=== PATIENT | female | born 1955 | race Two or more races ===

== ENCOUNTER → 2022-02-11 08:49 | Outpatient (BNVA) | payer OTHER, SELFPAY | PROVIDERS: PCP Internal Medicine; Visit Provider Dietitian, Registered | DX: E66.9 Obesity, unspecified (principal); Z68.36 Body mass index [BMI] 36.0-36.9, adult; R73.03 Prediabetes; Z71.3 Dietary counseling and surveillance | CPT/HCPCS: 97802 ==

== ENCOUNTER → 2023-03-30 09:49 | Outpatient (BNVA) | payer OTHER, SELFPAY | PROVIDERS: PCP Nurse Practitioner Family; Visit Provider Physician Assistant ==

== ENCOUNTER → 2023-04-18 13:38 | Outpatient (BNVA) | payer OTHER, SELFPAY | PROVIDERS: PCP Nurse Practitioner Family; Visit Provider Physician Assistant | DX: E66.01 Morbid (severe) obesity due to excess calories (principal); Z68.41 Body mass index [BMI] 40.0-44.9, adult; R73.03 Prediabetes; Z87.19 Personal history of other diseases of the digestive system; Z86.69 Personal history of other diseases of the nervous system and sense organs; Z98.84 Bariatric surgery status | CPT/HCPCS: 99202 ==

== ENCOUNTER → 2023-05-03 10:23 | Outpatient (REF) | payer OTHER, SELFPAY | LOC: HO.SL 10:23 | PROVIDERS: PCP Nurse Practitioner Family; Visit Provider Physician Assistant | DX: E66.01 Morbid (severe) obesity due to excess calories (principal); G47.33 Obstructive sleep apnea (adult) (pediatric); K21.9 Gastro-esophageal reflux disease without esophagitis; Z90.3 Acquired absence of stomach [part of]; Z86.69 Personal history of other diseases of the nervous system and sense organs | CPT/HCPCS: 95806 ==

== ENCOUNTER → 2023-05-04 13:31 | Outpatient (BNVA) | payer OTHER, SELFPAY | PROVIDERS: PCP Nurse Practitioner Family; Visit Provider Counselor Mental Health ==

== ENCOUNTER → 2023-05-11 10:47 | Outpatient (BNVA) | payer OTHER, SELFPAY | PROVIDERS: Visit Provider Dietitian, Registered | DX: E66.01 Morbid (severe) obesity due to excess calories (principal); R73.03 Prediabetes; Z68.41 Body mass index [BMI] 40.0-44.9, adult; Z90.49 Acquired absence of other specified parts of digestive tract; Z90.3 Acquired absence of stomach [part of]; Z71.3 Dietary counseling and surveillance | CPT/HCPCS: 97802 ==

== ENCOUNTER → 2023-05-19 13:51 | Outpatient (BNVA) | payer OTHER, SELFPAY | PROVIDERS: Visit Provider Physician Assistant | DX: E66.01 Morbid (severe) obesity due to excess calories (principal); F50.81 Binge eating disorder; Z90.3 Acquired absence of stomach [part of]; Z68.41 Body mass index [BMI] 40.0-44.9, adult | CPT/HCPCS: 99212 ==

== ENCOUNTER 2023-06-01 09:59 | Outpatient (REF) | payer OTHER, SELFPAY ==
--- NOTE | ~2023-06-01 | XR_ITS ---
EXAMINATION: XR CHEST CLINICAL INFORMATION: Morbid obesity COMPARISON: None available. TECHNIQUE: 2 views of the chest were obtained. FINDINGS: No significant abnormality is noted involving the heart, lungs, mediastinum, bony thorax or soft tissues. XR/XR chest 2V IMPRESSION: No acute disease.
[2023-06-01 11:44] LABS: Alanine Aminotransferase 19 U/L (0-31); Albumin Level 3.7 g/dL (3.5-5.0); Alkaline Phosphatase 73 U/L (39-117); Anion Gap 11 (12-20); Aspartate Amino Transferase 20 U/L (5-31); Bilirubin Total 0.9 mg/dL (0.0-1.0); Blood Urea Nitrogen 14 mg/dL (9-16); C Reactive Protein 0.17 mg/dL (< or = 0.50); Calcium 9.9 mg/dL (8.4-10.2); Carbon Dioxide 28 mmol/L (22-29); Chloride 105 mmol/L (96-108); Cholesterol 181 mg/dL; Estimated Glomerular Filt Rate > 60; Glucose Random 88 mg/dL (60-115); HDL Cholesterol 61 mg/dL; Iron 115 mcg/dL (30-160); LDL Cholesterol Calculated 102 mg/dl; Magnesium 1.9 mg/dL (1.6-2.6); Percent Iron Saturation 38 % (15-50); Potassium 4.1 mmol/L (3.3-5.1); Sodium 140 mmol/L (135-145); Total Iron Binding Capacity 301 mcg/dL (228-428); Total Protein 6.7 g/dL (6.5-8.0); Triglycerides 91 mg/dL; Unsaturated Iron Binding 186 ug/dL
[2023-06-01 11:51] LABS: Ferritin 82 ng/mL (10-250); TSH reflex Free T4 0.94 uIU/mL (0.32-4.0); Vitamin D 25-OH Total 39.9 ng/mL (>30)
[2023-06-01 12:21] LABS: Insulin 8 uU/mL (2-29)
[2023-06-06 01:33] LABS: Vitamin B1 9 nmol/L (8-30)
[2023-06-08 00:58] LABS: Vitamin A 44 mcg/dL (38-98)
== END 2023-06-01 10:00 | disposition home or self-care (01) ==
LOC: HO.XRAY 09:59
PROVIDERS: PCP Nurse Practitioner Family; Visit Provider Physician Assistant
DX: E66.01 Morbid (severe) obesity due to excess calories (principal); K21.9 Gastro-esophageal reflux disease without esophagitis; Z90.3 Acquired absence of stomach [part of]; Z86.69 Personal history of other diseases of the nervous system and sense organs
CPT/HCPCS: 36415; 71046; 80053; 80061; 82306; 82607; 82728; 82746; 83036; 83525; 83540; 83735; 83970; 84425; 84443; 84590; 84630; 85025; 86140; 93005

== ENCOUNTER 2023-06-06 11:14 | Outpatient (AMB) | payer OTHER, SELFPAY ==
--- NOTE | 2023-06-06 11:01 | MHC.AMNUTRGE ---
Intake Intake Visit Reasons: VIDEO F/U SWL Allergies No Known Allergies Allergy (Verified 05/19/23 13:59) HPI Nutrition Presentation Reason for consult elevated BMI Other problems/issues Per Ebony's note: Patient has learning disability (most likely, undiagnosed). She struggles to read labels, remember and retain information. She requires information to be repeated multiple times and needs to take notes.?? Diet Assmnt Details went away on vacation for 9 days gained 12# . Ate whatever she wanted, drank a lot of alcohol. 8am shake 3 eggs and melted cheese fills me up like crazy 12pm greilled chicken with vegetables 5pm protein bar or protein bar Sometimes skips shakes/bars , has a lot of excuses. Was supposed to follow the plan of: Meal plan 8am - shake 12pm - dinner 4 oz 4 oz 4pm - shake 8pm - bar or yogurt Previous nutrition appt in office did a lot of education Previous weight loss methods attempted s/p LSG at [facility], Dr Hamilton in 2019, with subsequent lap jona. Pre op wegiht 250 - 270 lbs lowest weight 180 lbs and no bariatric appt for at least 1 year. Has seen 3 [address] RD's since then who have differing opinions of what her diet should be Dietary counseling reduction Diagnosis Nutrition problem #1 overweight/obesity As related to (etiology) #1 excess energy intake and physical inactivity As evidenced by (sign/symptom) #1 high BMI Monitoring/Goals Nutrition problem monitoring total energy intake, level of knowledge/skill, total PRO intake, total CHO intake and weight Outcome progress applied knowledge Learning/Education Readiness to learn good Stages of change action Educational materials provided Yes Most Recent Diabetes Results: Cholesterol 181 mg/dL 06/01/23 HDL Cholesterol 61 mg/dL 06/01/23 Triglycerides 91 mg/dL 06/01/23 Creatinine 0.75 mg/dL (0.5-1.4) 06/01/23 Blood Urea Nitrogen 14 mg/dL (9-16) 06/01/23 Sodium 140 mmol/L (135-145) 06/01/23 Potassium 4.1 mmol/L (3.3-5.1) 06/01/23 Chloride 105 mmol/L (96-108) 06/01/23 Carbon Dioxide 28 mmol/L (22-29) 06/01/23 Calcium 9.9 mg/dL (8.4-10.2) 06/01/23 AST 20 U/L (5-31) 06/01/23 ALT 19 U/L (0-31) 06/01/23 Total Protein 6.7 g/dL (6.5-8.0) 06/01/23 Albumin 3.7 g/dL (3.5-5.0) 06/01/23 PFSH Medical History (Updated 05/04/23 @ 15:09 by Ebony Miranda) History of prediabetes Hx of gastroesophageal reflux (GERD) Surgical History History of sleeve gastrectomy Hx laparoscopic cholecystectomy Hx of section Hx of dental presybeterian Family History Mother Chronic alcoholism Depression Father Hypertension Senile Sister Depression Obesity Hypertension Diabetes Brother Diabetes Daughter Obesity Daughter Obesity Social History Alcohol intake: current Alcohol intake frequency: holidays/special occasions only Patient Tobacco Use Status: Never used Tobacco Assessment & Plan Assessment & Plan (1) Morbid exogenous obesity: Code(s): E66.01 - Morbid (severe) obesity due to excess calories Patient Instructions: Reiterated her Meal plan discussed with Jeanette last time. 8am - shake 12pm - dinner 4 oz 4 oz 4pm - shake 8pm - bar or yogurt Pt also needed another explanation of the rationale for her nutrition plan. Telehealth Telehealth Location of provider rendering services: practice address Location of patient: address on file Patient Identification confirmed using: Name, : Yes Telehealth method: video Patient verbally consented to treatment: Yes Patient verbally consented to billing insurance company: Yes Patient informed of any privacy concerns related to visit: Yes Minutes spent on Phone/Video with Pt.: 20 Coding Level of Care Code Nutr Indiv Subseq ([id number]) Diagnoses Morbid exogenous obesity E66.01 Time Spent (min) 20
== END 2023-06-06 11:23 | disposition home or self-care (01) ==
LOC: HO.HBS 11:14
PROVIDERS: PCP Nurse Practitioner Family; Visit Provider Dietitian, Registered
DX: E66.01 Morbid (severe) obesity due to excess calories (principal)

== ENCOUNTER → 2023-06-06 11:14 | Outpatient (BNVA) | payer OTHER, SELFPAY | PROVIDERS: PCP Nurse Practitioner Family; Visit Provider Dietitian, Registered | DX: E66.01 Morbid (severe) obesity due to excess calories (principal) | CPT/HCPCS: 97803 ==

== ENCOUNTER 2023-06-10 09:12 | Outpatient (REF) | payer OTHER, SELFPAY ==
[2023-06-13 14:26] LABS: H Pylori Breath Test Negative (Negative)
== END 2023-06-10 09:13 | disposition home or self-care (01) ==
LOC: CF 09:12
PROVIDERS: PCP Nurse Practitioner Family; Visit Provider Physician Assistant
DX: E66.01 Morbid (severe) obesity due to excess calories (principal); K21.9 Gastro-esophageal reflux disease without esophagitis; Z90.3 Acquired absence of stomach [part of]; Z86.69 Personal history of other diseases of the nervous system and sense organs
CPT/HCPCS: 36415; 83013; 99211; 99212

== ENCOUNTER 2023-06-10 09:12 | Outpatient (AMB) | payer OTHER, SELFPAY ==
[2023-06-10 09:17] VITALS: BP 138/66; PULSE 59; TEMP 36.4; O2SAT 97; BMI 43.8
--- NOTE | 2023-06-10 09:17 | MHC.OFFVISWM ---
Intake VS Expanded 06/10/23 09:17 Height 4 ft 10 in Weight 209 lb 6.4 oz BMI 43.8 BP 138/66 Blood Pressure Location Rt brachial Blood Pressure Position Sitting Pulse 59 Pulse Source Pulse Oximeter Temp 97.5 F Temperature Source Temporal Artery Scan Pulse Oximetry 97 Oxygen Delivery Method Room Air Body Fat 98.2 Body Fat Percentage 46.9 Free Fat Mass 111.2 Muscle Mass 105.4 Visceral Mass 17.0 Water Mass 78.4 BMR 1,561 Intake Visit Reasons: (OV) F/U SWL Allergies No Known Allergies Allergy (Verified 06/10/23 09:30) HPI HPI Comments History of Present Illness Details SWL follow up for revision of previous LSG. [facility] weight of 213.2 lbs, has lost 4 lbs.Went on vacation and went up to 217 lbs. Complains of heartburn with all food/liquids. Fay Andres helps her. Was eating too frequently and fast - finishing meals after she was full. Meal plan 8 or 9am- Premier or Quest shake - over 1hour 12 - 1pm - meal of 4 oz chicken and vegetable OR 2 boiled eggs 3-4 pm - bar 5-6 pm- last shake 8pm- yogurt or fruit Exercise - walks with grandchildren, no regular exercise Pre op work up completed as follows: [facility] classes - 03/05 appts? - follow not scheduled yet, will schedule today RD appts? follow up on 06/06, next appt on 07/25 H pylori - today Labs - normal CXR -dodne, not reaad yet ECG - Sinus bradycardia Otherwise normal ECG No previous ECGs available ? ULS and UGI - ordered for 06/15 [facility] Medical History (Updated 05/04/23 @ 15:09 by Ebony Miranda) History of prediabetes Hx of gastroesophageal reflux (GERD) Surgical History History of sleeve gastrectomy Hx laparoscopic cholecystectomy Hx of section Hx of dental hindu Family History Mother Chronic alcoholism Depression Father Hypertension Senile Sister Depression Obesity Hypertension Diabetes Brother Diabetes Daughter Obesity Daughter Obesity Social History Alcohol intake: current Alcohol intake frequency: holidays/special occasions only Patient Tobacco Use Status: Never used Tobacco Physical Exam Vital Signs: Last Vital Signs Temp 97.5 F 06/10/23 09:17 Pulse 59 06/10/23 09:17 BP 138/66 06/10/23 09:17 Pulse Ox 97 06/10/23 09:17 Oxygen Delivery Method Room Air 06/10/23 09:17 BMI result Body Mass Index 43.8 Assessment & Plan Assessment & Plan (1) Morbid exogenous obesity: Code(s): E66.01 - Morbid (severe) obesity due to excess calories Plan: Patient gained weight on vacation and now has restarted losing - net loss of 4 lbs. She is following most of the plan but still not completely correct. -Eating too frequently and too fast causing her heartburn. Meal plan: 8-9 am - shake - over 1.5 - 2hours 12 pm - 4 oz/4 oz - stop when begins to feel full or 30 minutes. eat protein first and do NOT go back and finish food. 4pm- shake or bar 8pm - have either the shake or bar Daily - 2 shakes, 1 bar or yougr (20- 30 mintues) and one meal Exercise - none yet - we reviewed that she MUST start video exercises 4d/ week for 30 minutes to start. Follow up with Ebony- being scheduled today Given access to classes again today. Next appt with me in 3 weeks, and radioilogy studies next week, h pylori today (2) History of sleeve gastrectomy: Comment: [facility] Code(s): Z90.3 - Acquired absence of stomach [part of] Coding Level of Care Code Est Pt Level 4 (68509) Diagnoses Morbid exogenous obesity E66.01 History of sleeve gastrectomy Z90.3
== END 2023-06-10 10:23 | disposition home or self-care (01) ==
PROVIDERS: PCP Nurse Practitioner Family; Visit Provider Physician Assistant
DX: E66.01 Morbid (severe) obesity due to excess calories (principal); Z68.41 Body mass index [BMI] 40.0-44.9, adult; Z90.3 Acquired absence of stomach [part of]; Z98.84 Bariatric surgery status
CPT/HCPCS: 99213

== ENCOUNTER 2023-06-15 07:52 | Outpatient (REF) | payer OTHER, SELFPAY ==
--- NOTE | ~2023-06-15 | US_ITS ---
EXAMINATION: US COMPLETE ABDOMEN WITH LIVER ELASTOGRAPHY CLINICAL INFORMATION: Obesity. COMPARISON: None available. TECHNIQUE: Real-time imaging of the abdominal viscera. Noninvasive ultrasound liver fibrosis assessment is performed using Adrian ElastPQ point quantification shear wave elastography (2D-SWE) with a C5-2 MHz transducer. Multiple elastography samples are obtained. FINDINGS: PANCREAS: Limited. The visualized pancreatic head and body are normal in appearance. The remainder of the pancreas is obscured from visualization by the overlying bowel gas. ABDOMINAL AORTA: The proximal segment is obscured by overlapping bowel gas. The middle, and distal aortic segments are normal in caliber. INFERIOR VENA CAVA: Visualized portions are normal. LIVER: Normal. The liver demonstrates normal size, contour and echogenicity. No focal lesion or intrahepatic biliary duct dilatation. The right lobe measures 14.7 cm in length. The left lobe measures 7.5 cm in length. Portal flow is towards the liver (hepatopetal). Shear wave liver elastography median stiffness is 1.14 m/s (reference: normal median stiffness is 1.3 m/s or less). IQR/median stiffness to assess sampling precision is 0.08 (reference: good quality data set is IQR/median stiffness of 0.15 or less). GALLBLADDER: Surgically absent. COMMON BILE DUCT: Normal in caliber measuring 0.3 cm in diameter. RIGHT KIDNEY: Normal. No hydronephrosis. No renal calculi or focal parenchymal lesions. The kidney measures 10.1 cm in maximum dimension. LEFT KIDNEY: Normal. No hydronephrosis. No renal calculi or focal parenchymal lesions. The kidney measures 10.6 cm in maximum dimension. SPLEEN: Normal. The spleen measures 9.6 cm in maximum dimension. FREE FLUID: None. US/US abdomen comp w elastography IMPRESSION: 1. Liver elastography: Measurements are consistent with a high probability of normal liver stiffness. 2. Technically limited ultrasound examination of the pancreas and abdominal great vessels. REFERENCE: Society of Radiologists in Ultrasound Liver Stiffness Thresholds (2020): LIVER STIFFNESS THRESHOLDS: *Liver Stiffness equal or less than 1.3 m/s: High probability of being normal. *Liver Stiffness less than 1.7 m/s: In the absence of other known clinical signs, rules out compensated advanced chronic liver disease. *Liver Stiffness 1.7-2.1 m/s: Suggestive of compensated advanced chronic liver disease but need further test for confirmation. *Liver Stiffness over 2.1 m/s: Rules in compensated advanced chronic liver disease. *Liver Stiffness over 2.4 m/s: Suggestive of clinically significant portal hypertension. QUALITY OF DATA SET: *IQR/Median value equal or less than 0.15 implies a quality data set. *IQR/Median value over 0.15 implies a poor quality data set. SIGNIFICANT CHANGE FROM PRIOR EXAM: Significant change if liver stiffness measurement is 10% or greater from prior exam. OTHER CONSIDERATIONS: The stage of liver fibrosis may be overestimated in the setting of acute hepatitis, liver inflammation, elevated liver function tests, hepatic vascular congestion, obstructive cholestasis, non-fasting state, and infiltrative diseases such as amyloidosis and lymphoma. In some patients with NAFLD, the liver stiffness thresholds for compensated advanced chronic liver disease may be lower. In causes other than viral hepatitis and NAFLD, liver stiffness thresholds are not well established.
--- NOTE | ~2023-06-15 | FL_ITS ---
EXAMINATION: XR FLUOROSCOPY UPPER GI WITH AIR CLINICAL INFORMATION: Morbid to severe obesity due to excess calories. COMPARISON: None available. TECHNIQUE: Routine upper GI air-contrast study was performed in upright and lying position. FINDINGS: Following oral administration of thick barium and effervescent granules, there is normal propagation of bolus from the oral cavity through the pharynx, esophagus into stomach without any evidence of obstruction, narrowing or stricture. The course, caliber and peristalsis of the esophagus is normal. On placing patient supine and prone lying, there is evidence of previous gastric sleeve surgery. The mucosal pattern of stomach, duodenal bulb and the sweep is normal. A small sliding hiatal hernia is seen. Visualized course, caliber and peristalsis of stomach, duodenal bulb and the sweep is normal. FLUOROSCOPY TIME: 1.5 minutes DOSE AREA PRODUCT: 32.445 uGy-m2 (microgray-meter squared) FL/FL upper GI w air IMPRESSION: 1. A small sliding hiatal hernia is seen. 2. Evidence of gastric sleeve surgery noted.
== END 2023-06-15 07:53 | disposition home or self-care (01) ==
LOC: HO.US 07:52
PROVIDERS: PCP Nurse Practitioner Family; Visit Provider Physician Assistant
DX: E66.01 Morbid (severe) obesity due to excess calories (principal); K21.9 Gastro-esophageal reflux disease without esophagitis; Z86.69 Personal history of other diseases of the nervous system and sense organs; Z90.3 Acquired absence of stomach [part of]
CPT/HCPCS: 74246; 76705; 76981

== ENCOUNTER → 2023-06-15 07:54 | Outpatient (BNV) | payer OTHER, SELFPAY | PROVIDERS: PCP Nurse Practitioner Family; Visit Provider Radiology Diagnostic Radiology | DX: E66.01 Morbid (severe) obesity due to excess calories (principal) | CPT/HCPCS: 74246 ==

== ENCOUNTER 2023-06-20 14:24 | Outpatient (AMB) | payer OTHER, SELFPAY ==
--- NOTE | 2023-06-21 16:01 | MHC.WMTHER ---
Intake Intake Visit Reasons: (OV) f/u BH Allergies No Known Allergies Allergy (Verified 06/10/23 09:30) [facility] Medical History (Updated 05/04/23 @ 15:09 by Ebony Miranda) History of prediabetes Hx of gastroesophageal reflux (GERD) Surgical History History of sleeve gastrectomy Hx laparoscopic cholecystectomy Hx of section Hx of dental religious Family History Mother Chronic alcoholism Depression Father Hypertension Senile Sister Depression Obesity Hypertension Diabetes Brother Diabetes Daughter Obesity Daughter Obesity Social History Alcohol intake: current Alcohol intake frequency: holidays/special occasions only Patient Tobacco Use Status: Never used Tobacco Behavioral Health Assessment Weight Management Therapy Therapy Notes Details Pt was tearful today talking about how bad she feels about herself due to not being able to loose pre op weight necessary. She reported doing well for a few days and then does not follow the plan exactly for a few days. She reported feeling like a failure and hates the way she looks. She has not started exercising and we discussed momentum and starting with the videos recommended. Mainly motivational interviewing used. Pt stated that she is looking for weight loss surgery revision to help improve her health and quality of life. She denied being in therapy however reported depression for most of life. She had an evaluation done when she had weight loss surgery in 2019. Post surgery, she had another session due to fear over eating. She has three previous suicide attempts at age 13 (cut herself requiring 111 stitches, age 20 had to get her stomach pumped and then age 23). She denied a history of problems with drugs or alcohol. Presenting Concerns Referral Source provider Reason for referral weight loss surgery evaluation Precipitating Event obesity Living Situation Current Living Situation Own At risk of losing current housing? Yes Satisfied with current living situation? No Comments Pt lives in her own home and lives alone. Food/Weight/Diet Expectations of change weight loss and maintenance History/Relationship with food Pt stated that she would skip breakfast, eat big dinner, 6 beers of Coors Light on the weekends, fast food about twice a week, buffet [place], she reported that she struggles with drinking water. Pt reported some binge eating, she will sit down and snack throughout the night until 8pm. History/Relationship with weight Prior to LSG she was 255lbs and then got down to 180lbs. Pt stated that she was overweight since childhood. History/Relationship with dieting weight loss surgery in 2019 Social History Family history and relationship Pt was born in [place] and age 7 moved here ([place]) with her parents who came first. She was raised by her grandmother who wanted to keep her however her mother took her from grandmother when she found out her father was cheating. Pt has two biological children, one has and also one adopted child. 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 Social support daughter, Episcopalian/Spirituality previously was [employer] Cultural/Ethnic information Legal Involvement and History Current or historical involvement with the legal system? none Education Highest grade completed 11th grade Patient has learning disability (most likely, undiagnosed). She struggles to read labels, remember and retain information. She requires information to be repeated multiple times and needs to take notes. Preferred learning style Learn by doing and Visual Currently enrolled in educational program? No Interested in further educational program? 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 Financial Situation Describe current financial situation Occasional struggle Financial assistance? None Medical and Physical Health Summary Physical exam in the last year? Yes Pain Screening Current pain? Yes Pain in the last few months? Yes Medications Is the patient compliant with medications? Yes Does the patient have Chung Guardian in place? Not applicable Does the patient use complimentary health approaches? No Trauma/Abuse History History of trauma? Yes Assessment & Plan Assessment & Plan (1) Major depressive disorder, recurrent, moderate: Code(s): F33.1 - Major depressive disorder, recurrent, moderate (2) Binge-eating disorder, moderate: Code(s): F50.81 - Binge eating disorder Plan Pt has a long history of depression, trauma, and reported that more recently some binge eating behaviors. She is in need of therapy and will be seen again. Coding Level of Care Code Psytx 30 mins (82463) Diagnoses Major depressive disorder, recurrent, moderate F33.1 Binge-eating disorder, moderate F50.81 Time Spent (min) 35
== END 2023-06-21 16:01 | disposition home or self-care (01) ==
PROVIDERS: PCP Nurse Practitioner Family; Visit Provider Counselor Mental Health
DX: F33.1 Major depressive disorder, recurrent, moderate (principal); F50.81 Binge eating disorder
CPT/HCPCS: 90832

== ENCOUNTER → 2023-06-20 14:24 | Outpatient (BNVA) | payer OTHER, SELFPAY | PROVIDERS: PCP Nurse Practitioner Family; Visit Provider Counselor Mental Health ==

== ENCOUNTER 2023-07-08 11:56 | Outpatient (AMB) | payer OTHER, SELFPAY ==
--- NOTE | 2023-07-08 11:25 | MHC.OFFVISWM ---
Intake VS Expanded 07/08/23 11:58 Height 4 ft 10 in Weight 209 lb 9.6 oz BMI 43.8 BP 128/68 Blood Pressure Location Rt brachial Blood Pressure Position Sitting Pulse Source Pulse Oximeter Temp 97.8 F Temperature Source Temporal Artery Scan Pulse Oximetry 95 Oxygen Delivery Method Room Air Body Fat 100.4 Body Fat Percentage 47.9 Free Fat Mass 109.2 Muscle Mass 103.6 Visceral Mass 17 Water Mass 77.2 BMR 1,541 Intake Visit Reasons: (OV) F/U SWL Screwhead Polisher Required: No Accompanied by: Self / Same As Patient Allergies No Known Allergies Allergy (Verified 07/08/23 11:58) HPI HPI Comments History of Present Illness Details SWL follow up. 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 TBWL 209.6 Exercise - walks with her grand kids only. Meal plan: We spoke about how she is not following the plan well due to continuing her old habits, succumbing to pressure from family and not having yet chnaged her relationship to food. When I asked why she continues certain eating behaviors - I don't know. What does it mean to have emotions? Pre op work up completed as follows: [facility] classes - 03/05 appts? - seen on 06/21, will be seen again RD appts? follow up on 06/06, next appt on 07/25 H pylori - negative Labs - normal CXR -normal ECG -?Sinus bradycardia Otherwise normal ECG No previous ECGs available ? ULS -normal UGI - slidign , Dr Reyes has reveiwed and wants to perform EGD. In process of being scheduled. [facility] Medical History History of prediabetes Hx of gastroesophageal reflux (GERD) Surgical History History of sleeve gastrectomy Hx laparoscopic cholecystectomy Hx of section Hx of dental tenriism Family History Mother Chronic alcoholism Depression Father Hypertension Senile Sister Depression Obesity Hypertension Diabetes Brother Diabetes Daughter Obesity Daughter Obesity Social History Alcohol intake: current Alcohol intake frequency: holidays/special occasions only Patient Tobacco Use Status: Never used Tobacco Assessment & Plan Assessment & Plan (1) Morbid exogenous obesity: Code(s): E66.01 - Morbid (severe) obesity due to excess calories Plan: SWL preparing for revision of LSg. Patient still has to make alot of changes before she is ready and able to commit to a meal and exercise plan. Only 3.6 lbs weigh tloss over 3 months. She now has follow ups tre Beck and Fanny and will continue to see me every [address] Reyes Patient is morbidly obese and is not considered stable at this time. I spent 30 minutes in total with patient reviewing/updating records, examining the patient and counseling the patient on weight management as detailed above. (2) History of sleeve gastrectomy: Comment: Code(s): Z90.3 - Acquired absence of stomach [part of] (3) GERD (gastroesophageal reflux disease): Code(s): K21.9 - Gastro-esophageal reflux disease without esophagitis Coding Level of Care Code Est Pt Level 4 (95461) Diagnoses Morbid exogenous obesity E66.01 History of sleeve gastrectomy Z90.3 GERD (gastroesophageal reflux disease) K21.9
[2023-07-08 11:58] VITALS: BP 128/68; TEMP 36.6; O2SAT 95; BMI 43.8
== END 2023-07-08 12:43 | disposition home or self-care (01) ==
PROVIDERS: PCP Nurse Practitioner Family; Visit Provider Physician Assistant
DX: E66.01 Morbid (severe) obesity due to excess calories (principal); Z90.3 Acquired absence of stomach [part of]; K21.9 Gastro-esophageal reflux disease without esophagitis
CPT/HCPCS: 99214

== ENCOUNTER → 2023-07-08 11:56 | Outpatient (BNVA) | payer OTHER, SELFPAY | PROVIDERS: PCP Nurse Practitioner Family; Visit Provider Physician Assistant | DX: E66.01 Morbid (severe) obesity due to excess calories (principal); Z68.41 Body mass index [BMI] 40.0-44.9, adult; K21.9 Gastro-esophageal reflux disease without esophagitis; Z90.3 Acquired absence of stomach [part of] | CPT/HCPCS: 99212 ==

== ENCOUNTER 2023-07-14 11:58 | Outpatient (AMB) | payer OTHER, SELFPAY ==
--- NOTE | 2023-07-14 15:23 | MHC.WMTHER ---
Intake Intake Visit Reasons: VIDEO f/u Allergies No Known Allergies Allergy (Verified 07/08/23 11:58) [facility] Medical History History of prediabetes Hx of gastroesophageal reflux (GERD) Surgical History History of sleeve gastrectomy Hx laparoscopic cholecystectomy Hx of section Hx of dental islam Family History Mother Chronic alcoholism Depression Father Hypertension Senile Sister Depression Obesity Hypertension Diabetes Brother Diabetes Daughter Obesity Daughter Obesity Social History Alcohol intake: current Alcohol intake frequency: holidays/special occasions only Patient Tobacco Use Status: Never used Tobacco Behavioral Health Assessment Weight Management Therapy Therapy Notes Details Pt was tearful today talking about how bad she feels about herself due to not being able to loose pre op weight necessary. She reported doing well for a few days and then does not follow the plan exactly for a few days. Mainly motivational interviewing used. Pt stated that she is looking for weight loss surgery revision to help improve her health and quality of life. She denied being in therapy however reported depression for most of life. She had an evaluation done when she had weight loss surgery in 2019. Post surgery, she had another session due to fear over eating. She has three previous suicide attempts at age 13 (cut herself requiring 111 stitches, age 20 had to get her stomach pumped and then age 23). She denied a history of problems with drugs or alcohol. Presenting Concerns Referral Source provider Reason for referral weight loss surgery evaluation Precipitating Event obesity Living Situation Current Living Situation Own At risk of losing current housing? Yes Satisfied with current living situation? No Comments Pt lives in her own home and lives alone. Food/Weight/Diet Expectations of change weight loss and maintenance History/Relationship with food Pt stated that she would skip breakfast, eat big dinner, 6 beers of Coors Light on the weekends, fast food about twice a week, buffet [place], she reported that she struggles with drinking water. Pt reported some binge eating, she will sit down and snack throughout the night until 8pm. History/Relationship with weight Prior to LSG she was 255lbs and then got down to 180lbs. Pt stated that she was overweight since childhood. History/Relationship with dieting weight loss surgery in 2019 Social History Family history and relationship Pt was born in [place] and age 7 moved here ([place]) with her parents who came first. She was raised by her grandmother who wanted to keep her however her mother took her from grandmother when she found out her father was cheating. Pt has two biological children, one has and also one adopted child. 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 Social support daughter, Rastafarian/Spirituality previously was Seventh Day Mandaeism Cultural/Ethnic information Legal Involvement and History Current or historical involvement with the legal system? none Education Highest grade completed 11th grade Patient has learning disability (most likely, undiagnosed). She struggles to read labels, remember and retain information. She requires information to be repeated multiple times and needs to take notes. Preferred learning style Learn by doing and Visual Currently enrolled in educational program? No Interested in further educational program? 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 Financial Situation Describe current financial situation Occasional struggle Financial assistance? None Medical and Physical Health Summary Physical exam in the last year? Yes Pain Screening Current pain? Yes Pain in the last few months? Yes Medications Is the patient compliant with medications? Yes Does the patient have Chung Guardian in place? Not applicable Does the patient use complimentary health approaches? No Trauma/Abuse History History of trauma? Yes Assessment & Plan Assessment & Plan (1) Major depressive disorder, recurrent, moderate: Code(s): F33.1 - Major depressive disorder, recurrent, moderate (2) Binge-eating disorder, moderate: Code(s): F50.81 - Binge eating disorder Plan Pt has a long history of depression, trauma, and reported that more recently some binge eating behaviors. She is in need of therapy and will be seen again. Telehealth Telehealth Location of provider rendering services: other Location of patient: address on file Patient Identification confirmed using: Name, : Yes Telehealth method: video Patient verbally consented to treatment: Yes Patient verbally consented to billing insurance company: Yes Patient informed of any privacy concerns related to visit: Yes Minutes spent on Phone/Video with Pt.: 30 Coding Level of Care Code Tele Psytx 30 mins (11201) Diagnoses Major depressive disorder, recurrent, moderate F33.1 Binge-eating disorder, moderate F50.81 Time Spent (min) 30
== END 2023-07-14 15:23 | disposition home or self-care (01) ==
LOC: HO.HBST 11:58
PROVIDERS: PCP Nurse Practitioner Family; Visit Provider Counselor Mental Health
DX: F33.1 Major depressive disorder, recurrent, moderate (principal); F50.81 Binge eating disorder
CPT/HCPCS: 90832

== ENCOUNTER → 2023-07-14 11:58 | Outpatient (BNVA) | payer OTHER, SELFPAY | PROVIDERS: PCP Nurse Practitioner Family; Visit Provider Counselor Mental Health ==

== ENCOUNTER → 2023-07-25 11:36 | Outpatient (BNVA) | payer OTHER, SELFPAY | PROVIDERS: PCP Nurse Practitioner Family; Visit Provider Dietitian, Registered | DX: Z90.49 Acquired absence of other specified parts of digestive tract (principal); Z90.3 Acquired absence of stomach [part of]; Z71.3 Dietary counseling and surveillance | CPT/HCPCS: 97803 ==

== ENCOUNTER 2023-07-27 06:35 | Day surgery (SDC) | payer OTHER, SELFPAY ==
[2023-07-22 15:54] VITALS: BMI 43.8
--- NOTE | 2023-07-22 22:37 | P.HPSUR_ITS ---
Pre-Procedural Eval Section A Date of Service: 07/22/23 The patient is an INPATIENT: No The History & Physical has been completed within 30 days and I have reviewed it.: Yes Section B Chief Complaint: gerd Relevant Family History (Specify if Yes): No Relevant Social History: None Present Medications: None Medical History: No relevant PMH History of Previous Operations: Relevant previous surgery/procedure and date(s) (laparoscopic sleeve gastrectomy) Allergies: Allergies Allergy/AdvReac Type Severity Reaction Status Date / Time No Known Allergies Allergy Verified 07/08/23 11:58 Review of Systems Sugical H&P ROS: Negative: Constitution, Cardiovascular, Respiratory, Neurological, Psychiatric, Hem-Onc, Allergic/Immunologic, Gastrointestinal, Genitourinary, Musculoskeletal, Integumentary, Endocrine and Ey es/Ears/Nose/Throat Exam Surgical H&P Exam: Normal: HEENT, Normal: Heart, Normal: Lungs, Normal: Extremities, Normal: Abdomen, Normal: Skin and Normal: Neurological Plan Diagnosis/Plan: Unchanged (EGD to assess for esophagitis. Risks for perforation and bleeding were discussed with patient. She is in agreement with the plan) I have reviewed the history and physical and performed a pertinent physical examination on my patient. No changes have occurred unless specified. Time Spent With Patient Time: Total time managing care of this patient today ____ minutes.
--- NOTE | 2023-07-25 12:07 | P.CONAN_ITS ---
Documented by User: Clara Pérez NP 08/03/23 14:08 HPI - Anesthesia Eval Consult details Narrative: 67yo F for Upper Endoscopy PMFSH Active Problems Active Problems: All Active Problems (Updated 05/04/23 @ 15:09 by Ebony Miranda) Binge-eating disorder, moderate (Acute) Major depressive disorder, recurrent, moderate (Acute) GERD (gastroesophageal reflux disease) (Acute) Morbid exogenous obesity (Acute) History of sleeve gastrectomy (Acute) History of depression (Acute) Hx of sleep apnea (Acute) Pre-diabetes (Acute) Past Medical History Medical History History of prediabetes Hx of gastroesophageal reflux (GERD) Family History Family History Mother Chronic alcoholism Depression Father Hypertension Senile Sister Depression Obesity Hypertension Diabetes Brother Diabetes Daughter Obesity Daughter Obesity Surgical History Surgical History (Updated 07/27/23 @ 06:42 by Cinda Castañeda) History of bilateral knee replacement Hx of section Hx of dental zoroastrian Hx laparoscopic cholecystectomy History of sleeve gastrectomy Social History Social History Alcohol intake: current Alcohol intake frequency: holidays/special occasions only Patient Tobacco Use Status: Former Tobacco user Quit Date: 1979 Tobacco use type: Cigarette Years Smoked: 5 Meds Allergies Allergy/AdvReac Type Severity Reaction Status Date / Time No Known Allergies Allergy Verified 07/27/23 06:43 Home Medications Medication Instructions Recorded Confirmed Last Taken Type acetaminophen 500 mg tablet 500 mg PO BID PRN Pain 03/30/23 07/27/23 Unknown History (Tylenol Extra Strength) biotin 10,000 mcg capsule 10,000 mcg PO DAILY 03/30/23 07/27/23 Unknown History calcium citrate 600 mg PO DAILY 03/30/23 07/27/23 Unknown History gabapentin 300 mg capsule 300 mg PO TID 03/30/23 07/27/23 Unknown History magnesium oxide 400 mg PO DAILY 03/30/23 07/27/23 Unknown History lexvphps-ptyyoqkl-nqzf 45 mg-folic 1 cap PO DAILY 03/30/23 07/27/23 Unknown History acid 800 mcg-vit K 120 mcg capsule (Bariatric Multivitamins) duloxetine 60 mg capsule,delayed 100 mg PO DAILY 04/18/23 07/27/23 Unknown History release ibuprofen 600 mg tablet 600 mg PO NEEDED PRN Pain 04/18/23 07/27/23 07/26/23 History omeprazole 20 mg capsule,delayed 20 mg PO BID 04/18/23 07/27/23 Unknown History release sennosides 8.6 mg-docusate sodium 1 tab-cap PO BID PRN Constipation 04/18/23 07/27/23 Unknown History 50 mg capsule (Senna Plus) diclofenac sodium 1 % topical gel 1 ea topical DAILY 07/08/23 07/27/23 Unknown History melatonin 5 mg tablet 5 mg PO BEDTIME 07/08/23 07/27/23 Unknown History Exam Exam Date and Time: July 25, 2023 1207 Height,Weight and Vital Signs: Height 4 ft 10 in Weight 95.073 kg Pertinent Lab Results Pertinent Lab Results: Laboratory Tests 06/01/23 06/01/23 10:24 10:24 WBC 3.8 L Hgb 13.6 Hct 40.4 Plt Count 152 L Sodium 140 Potassium 4.1 Chloride 105 Carbon Dioxide 28 BUN 14 Creatinine 0.75 Narrative Narrative: EKG 05/2023 Vent. Rate : 059 BPM ? ? Atrial Rate : 059 BPM ?? P-R Int : 176 ms? QRS Dur : 082 ms ? ? QT Int : 400 ms ? ? ? P-R-T Axes : 002 -02 015 degrees ?? QTc Int : 396 ms ? Sinus bradycardia Otherwise normal ECG No previous ECGs available Assessment and Plan Assessment Anesthesia Assessment: Chart Reviewed Documented by User: Mary Lara MD 08/04/23 08:14 PMFSH Active Problems Active Problems: All Active Problems (Updated 05/04/23 @ 15:09 by Ebony Miranda) Binge-eating disorder, moderate (Acute) Major depressive disorder, recurrent, moderate (Acute) GERD (gastroesophageal reflux disease) (Acute) Morbid exogenous obesity (Acute) History of sleeve gastrectomy (Acute) History of depression (Acute) Hx of sleep apnea (Acute) Pre-diabetes (Acute) Past Medical History Medical History History of prediabetes Hx of gastroesophageal reflux (GERD) Family History Family History Mother Chronic alcoholism Depression Father Hypertension Senile Sister Depression Obesity Hypertension Diabetes Brother Diabetes Daughter Obesity Daughter Obesity Family history of problems with anesthesia: No Surgical History Surgical History (Updated 07/27/23 @ 06:42 by Cinda Castañeda) History of bilateral knee replacement Hx of section Hx of dental zoroastrian Hx laparoscopic cholecystectomy History of sleeve gastrectomy History of Problems with Anesthesia: No Social History Social History Alcohol intake: current Alcohol intake frequency: holidays/special occasions only Patient Tobacco Use Status: Former Tobacco user Quit Date: 1979 Tobacco use type: Cigarette Years Smoked: 5 Meds Allergies Allergy/AdvReac Type Severity Reaction Status Date / Time No Known Allergies Allergy Verified 07/27/23 06:43 Home Medications Medication Instructions Recorded Confirmed Last Taken Type acetaminophen 500 mg tablet 500 mg PO BID PRN Pain 03/30/23 07/27/23 Unknown History (Tylenol Extra Strength) biotin 10,000 mcg capsule 10,000 mcg PO DAILY 03/30/23 07/27/23 Unknown History calcium citrate 600 mg PO DAILY 03/30/23 07/27/23 Unknown History gabapentin 300 mg capsule 300 mg PO TID 03/30/23 07/27/23 Unknown History magnesium oxide 400 mg PO DAILY 03/30/23 07/27/23 Unknown History yaaepkzu-icvqfkqq-easr 45 mg-folic 1 cap PO DAILY 03/30/23 07/27/23 Unknown History acid 800 mcg-vit K 120 mcg capsule (Bariatric Multivitamins) duloxetine 60 mg capsule,delayed 100 mg PO DAILY 04/18/23 07/27/23 Unknown History release ibuprofen 600 mg tablet 600 mg PO NEEDED PRN Pain 04/18/23 07/27/23 07/26/23 History omeprazole 20 mg capsule,delayed 20 mg PO BID 04/18/23 07/27/23 Unknown History release sennosides 8.6 mg-docusate sodium 1 tab-cap PO BID PRN Constipation 04/18/23 07/27/23 Unknown History 50 mg capsule (Senna Plus) diclofenac sodium 1 % topical gel 1 ea topical DAILY 07/08/23 07/27/23 Unknown History melatonin 5 mg tablet 5 mg PO BEDTIME 07/08/23 07/27/23 Unknown History Exam Airway Heart: rrr Lungs: cta Assessment and Plan Final Anesthetic Review Family History of Problems with Anesthesia: No History of Problems with Anesthesia: No NPO: Yes Final Preanesthetic Review: No Changes in Pt Med Stat, Meds/Allgs Chart Reviewed, Consent Obtained/Reviewed and Anes Risks/Benef Reviewed Patient Risk: Intermediate Procedure Risk: Low Anesthetic Plan Anesthetic Plan: MAC: Disposition: Standard PACU
[2023-07-27 06:53] VITALS: BMI 43.9
[2023-07-27 06:55] VITALS: BP 137/64; PULSE 64; RESP 16; TEMP 37.2; O2SAT 97
[2023-07-27] MEDS: Lactated Ringers 1,000 ML 100 ML IVCONT (07:21)
[2023-07-27 08:05] VITALS: BP 90/52; PULSE 71; RESP 20; TEMP 36.1; O2SAT 100
--- NOTE | 2023-07-27 08:19 | P.BOP_ITS ---
Brief Operative Note Date of Service: 07/27/23 Pre-op diagnosis: GERD, s/p sleeve gastrectomy Post-op diagnosis: same (1) Gastritis, 2) mild redundancy proximal sleeve) Procedure: PROCEDURE DATE: 07/27/2023 PREOPERATIVE DIAGNOSIS: GERD, s/p sleeve gastrectomy POSTOPERATIVE DIAGNOSIS: ?Same as above. 1) redundancy proximal sleeve, 2) distal gastritis PROCEDURE: Hcbigpiz-rgxatg-rqcsugrearqe with biopsies Surgeon: ?Manoj Thurston M.D.. Ph.D. Academic Records Specialist: None ? Anesthesia: IV sedation Estimated blood loss: ?Minimal FINDINGS AND PROCEDURE: ? OPERATIVE INDICATIONS: ?The patient is a 67 year old female known to me who underwent a laparoscopic sleeve gastrectomy elsewhere. The patient had inadequate weight loss so far and has been complaining of GERD. Based on this information I recommended an upper endoscopy to evaluate the patient's symptoms. Risks and complications of the surgery were discussed with the patient in advance particularly the possibility of perforation or bleeding that may require surgical intervention. The patient understood the risks and was in agreement with the plan. ? PROCEDURE: After informed consent was obtained by the patient, the patient was ?transferred to the Operating Room and was placed in the supine position.? After successful induction of IV sedation, a mouth block was inserted and the patient was placed in the left lateral decubitus position. An upper endoscopy was performed next, the oropharynx and esophagus appeared within the normal limits. There was no hiatal hernia. The z-line was smooth. Two biopsies were obtained from the distal esohagus 2-3 cm proximal to the GE junction and two additional biopsies from the GE junction. The sleeve was entered. There was mild redundancy at the proximal sleeve near the GE junction. The rest of the sleeve appeared to be of normal size and caliber. There was mild gastritis at distal antrum. There was no stricture or ulcer. Biopsies were obtained from the proximal sleeve as well as the distal antrum. No significant bleeding was noted from any of the biopsy sites. The scope was then advanced into the duodenum which appeared to be normal as well. At that point the duodenum ?and the sleeve were decompressed and the scope was withdrawn from the patient's mouth. The patient extubated and was transferred in stable condition to the Recovery Room for further care. I was present and performed all steps of the procedure. There were no residents to assist with this case. Manoj Thurston M.D., Ph.D. Surgeon: David Thurston MD Anesthesia: MAC Was an Academic Records Specialist used for this Procedure?: No Estimated blood loss (mL): 0 IV fluids (mL): 400 Urine output (mL): 0 (No Bird to record output) Pathology: other (Path: 1) antrum x1, 2) proximal sleeve/gastric fundus x1, 3) EGJ x2, 4) distal esophagus x2) Condition: stable Disposition: PACU
[2023-07-27 08:20] VITALS: BP 106/68; PULSE 67; RESP 16; TEMP 36.1; O2SAT 100
[2023-07-27 08:33] VITALS: BP 111/66; PULSE 65; RESP 16; TEMP 36.1; O2SAT 98
== END 2023-07-27 09:30 | disposition home or self-care (01) ==
PROVIDERS: PCP Nurse Practitioner Family; Visit Provider Surgery
PROC: 0DJ08ZZ Inspection of Upper Intestinal Tract, Via Natural or Artificial Opening Endoscopic (ICD-10-PCS; CPT 43235; principal; 2023-07-27 07:30)
DX: K21.9 Gastro-esophageal reflux disease without esophagitis (principal); Z98.84 Bariatric surgery status; Z90.3 Acquired absence of stomach [part of]; K29.50 Unspecified chronic gastritis without bleeding; E66.01 Morbid (severe) obesity due to excess calories; Z68.41 Body mass index [BMI] 40.0-44.9, adult; Z90.49 Acquired absence of other specified parts of digestive tract
CPT/HCPCS: 43239; 88305; 88342

== ENCOUNTER → 2023-07-27 06:35 | Outpatient (BNV) | payer OTHER, SELFPAY | PROVIDERS: PCP Nurse Practitioner Family; Visit Provider Surgery | DX: K21.9 Gastro-esophageal reflux disease without esophagitis (principal); Z90.3 Acquired absence of stomach [part of]; Z98.84 Bariatric surgery status | CPT/HCPCS: 43239 ==

== ENCOUNTER 2023-08-03 19:02 | Outpatient (AMB) | payer OTHER, SELFPAY ==
--- NOTE | 2023-08-10 14:34 | A.OFFWM_ITS ---
Intake Intake Visit Reasons: Group Therapy Allergies No Known Allergies Allergy (Verified 07/27/23 06:43) [facility] Medical History History of prediabetes Hx of gastroesophageal reflux (GERD) Surgical History (Updated 07/27/23 @ 06:42 by Cinda Castañeda) History of bilateral knee replacement Hx of section Hx of dental caodaism Hx laparoscopic cholecystectomy History of sleeve gastrectomy Family History Mother Chronic alcoholism Depression Father Hypertension Senile Sister Depression Obesity Hypertension Diabetes Brother Diabetes Daughter Obesity Daughter Obesity Social History Alcohol intake: current Alcohol intake frequency: holidays/special occasions only Patient Tobacco Use Status: Former Tobacco user Quit Date: 1979 Tobacco use type: Cigarette Years Smoked: 5 Behavioral Health Assessment Weight Management Therapy Therapy Notes Details First group session today. Discussed boundaries within personal life with self and others. Patient was tearful and shared some of her struggles mainly at night time with emotional eating. Pt stated that she is looking for weight loss surgery revision to help improve her health and quality of life. She denied being in therapy however reported depression for most of life. She had an evaluation done when she had weight loss surgery in 2019. Post surgery, she had another session due to fear over eating. She has three previous suicide attempts at age 13 (cut herself requiring 111 stitches, age 20 had to get her stomach pumped and then age 23). She denied a history of problems with drugs or alcohol. Presenting Concerns Referral Source provider Reason for referral weight loss surgery evaluation Precipitating Event obesity Living Situation Current Living Situation Own At risk of losing current housing? Yes Satisfied with current living situation? No Comments Pt lives in her own home and lives alone. Food/Weight/Diet Expectations of change weight loss and maintenance History/Relationship with food Pt stated that she would skip breakfast, eat big dinner, 6 beers of Coors [employer] on the weekends, fast food about twice a week, buffet [place], she reported that she struggles with drinking water. Pt reported some binge eating, she will sit down and snack throughout the night until 8pm. History/Relationship with weight Prior to LSG she was 255lbs and then got down to 180lbs. Pt stated that she was overweight since childhood. History/Relationship with dieting weight loss surgery in 2019 Social History Family history and relationship Pt was born in [place] and age 7 moved here ([place]) with her parents who came first. She was raised by her grandmother who wanted to keep her however her mother took her from grandmother when she found out her father was cheating. Pt has two biological children, one has and also one adopted child. 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 Social support daughter, Rastafari/Spirituality previously was Seventh Day Buddhist Cultural/Ethnic information Legal Involvement and History Current or historical involvement with the legal system? none Education Highest grade completed 11th grade Patient has learning disability (most likely, undiagnosed). She struggles to read labels, remember and retain information. She requires information to be repeated multiple times and needs to take notes. Preferred learning style Learn by doing and Visual Currently enrolled in educational program? No Interested in further educational program? 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 Financial Situation Describe current financial situation Occasional struggle Financial assistance? None Medical and Physical Health Summary Physical exam in the last year? Yes Pain Screening Current pain? Yes Pain in the last few months? Yes Medications Is the patient compliant with medications? Yes Does the patient have Chung Guardian in place? Not applicable Does the patient use complimentary health approaches? No Trauma/Abuse History History of trauma? Yes Assessment & Plan Assessment & Plan (1) Major depressive disorder, recurrent, moderate: Code(s): F33.1 - Major depressive disorder, recurrent, moderate (2) Binge-eating disorder, moderate: Code(s): F50.81 - Binge eating disorder Plan Pt has a long history of depression, trauma, and reported that more recently some binge eating behaviors. She is in need of therapy and will be seen again. Coding Level of Care Code Grp Psych (12329) Diagnoses Major depressive disorder, recurrent, moderate F33.1 Binge-eating disorder, moderate F50.81 Time Spent (min) 60
== END 2023-08-05 09:55 | disposition home or self-care (01) ==
LOC: HO.HBST 19:02
PROVIDERS: PCP Nurse Practitioner Family; Visit Provider Counselor Mental Health
DX: F33.1 Major depressive disorder, recurrent, moderate (principal); F50.81 Binge eating disorder

== ENCOUNTER → 2023-08-03 19:02 | Outpatient (BNVA) | payer OTHER, SELFPAY | PROVIDERS: PCP Nurse Practitioner Family; Visit Provider Counselor Mental Health | DX: F33.1 Major depressive disorder, recurrent, moderate (principal); F50.81 Binge eating disorder | CPT/HCPCS: 90853 ==

== ENCOUNTER 2023-08-05 08:30 | Outpatient (AMB) | payer OTHER, SELFPAY ==
--- NOTE | 2023-08-05 08:36 | A.OFFVIS_ITS ---
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 She finds them really helpful. Meal plan - off and on , still overeating at night with cheese and almonds. Exercise - none Pre op work up completed as follows: SWL classes - 07/05 appts? - seen on 06/21, will be scheduled again today RD appts? follow up on 06/06, next appt on 07/25, will need follow up when more ready. H pylori - negative Labs - normal CXR -normal ECG -?Sinus bradycardia Otherwise normal ECG No previous ECGs available ?ULS -normal UGI - sliding HH, Dr Reyes has reveiwed and wants to perform EGD. EGD on 07/27 - some proximal redundancy, biopsies negative. IS surgical candidate when ready. [facility] Medical History History of prediabetes Hx of gastroesophageal reflux (GERD) Surgical History (Updated 07/27/23 @ 06:42 by Cinda Castañeda) History of bilateral knee replacement Hx of section Hx of dental zoroastrianism Hx laparoscopic cholecystectomy History of sleeve gastrectomy Family History Mother Chronic alcoholism Depression Father Hypertension Senile Sister Depression Obesity Hypertension Diabetes Brother Diabetes Daughter Obesity Daughter Obesity Social History Alcohol intake: current Alcohol intake frequency: holidays/special occasions only Patient Tobacco Use Status: Former Tobacco user Quit Date: 1979 Tobacco use type: Cigarette Years Smoked: 5 Assessment & Plan Assessment & Plan (1) Morbid exogenous obesity: Code(s): E66.01 - Morbid (severe) obesity due to excess calories Plan: Pt is preparing for revision of previous sleeve with proximal redundancy and approved by Lina Reyes. she still has work to do in terms sof making healthy lifestyle changes around food and exercise. She is working with Ebony in individual and group therapy and finds it very helpful. We discussed that she is not ready for revision surgery at this time and will continue to work towards that goal. 8:30 - shake 12pm- yogurt 4pm - 4pm 8:30 pm - does not want second shake, has a yogurt then 10pm - bar in 10 pieces Must start exercising.... Next appt with me in 3-4 weeks, appt with Ebony now. Will schedule another appt with Fanny when she is more ready. Patient is still morbidly obese and is not considered stable at this time. I spent 30 minutes in total speaking with the patient via video conference couns santiago , reviewing records and charting in patients chart. . (2) Binge-eating disorder, moderate: Code(s): F50.81 - Binge eating disorder (3) History of sleeve gastrectomy: Comment: Renzo-MARTINA Code(s): Z90.3 - Acquired absence of stomach [part of] Telehealth Telehealth Location of provider rendering services: practice address Location of patient: address on file Patient Identification confirmed using: Name, : Yes Telehealth method: video Patient verbally consented to treatment: Yes Patient verbally consented to billing insurance company: Yes Patient informed of any privacy concerns related to visit: Yes Coding Level of Care Code Tele Est Pt Level 4 (67658) Diagnoses Morbid exogenous obesity E66.01 Binge-eating disorder, moderate F50.81 History of sleeve gastrectomy Z90.3
[2023-08-05 08:42] VITALS: BMI 44.3
== END 2023-08-05 09:04 | disposition home or self-care (01) ==
LOC: HO.HBS 08:59
PROVIDERS: PCP Nurse Practitioner Family; Visit Provider Physician Assistant
DX: E66.01 Morbid (severe) obesity due to excess calories (principal); Z68.41 Body mass index [BMI] 40.0-44.9, adult; Z90.3 Acquired absence of stomach [part of]; Z98.84 Bariatric surgery status; F50.81 Binge eating disorder
CPT/HCPCS: 99214

== ENCOUNTER → 2023-08-05 08:30 | Outpatient (BNVA) | payer OTHER, SELFPAY | PROVIDERS: PCP Nurse Practitioner Family; Visit Provider Physician Assistant ==

== ENCOUNTER 2023-08-22 14:55 | Outpatient (AMB) | payer OTHER, SELFPAY ==
--- NOTE | 2023-08-22 15:01 | A.OFFWM_ITS ---
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 She talked about a disagreement with her daughter in which hurtful words were spoken. Discussed emotional eating as a symptoms and underlining causes. She struggles to identify what she is feeling when she is over eating/binge/emotional eating, says she is just watching TV. We discussed how to start becoming aware of how her body is feeling and the constant crying being an indication that there is depression and unresolved trauma. Presenting Concerns Referral Source provider Reason for referral weight loss surgery evaluation Precipitating Event obesity Living Situation Current Living Situation Own At risk of losing current housing? Yes Satisfied with current living situation? No Comments Pt lives in her own home and lives alone. Food/Weight/Diet Expectations of change weight loss and maintenance History/Relationship with food Pt stated that she would skip breakfast, eat big dinner, 6 beers of Coors Light on the weekends, fast food about twice a week, buffet [place], she reported that she struggles with drinking water. Pt reported some binge eating, she will sit down and snack throughout the night until 8pm. History/Relationship with weight Prior to LSG she was 255lbs and then got down to 180lbs. Pt stated that she was overweight since childhood. History/Relationship with dieting weight loss surgery in 2019 Social History Family history and relationship Pt was born in [place] and age 7 moved here ([place]) with her parents who came first. She was raised by her grandmother who wanted to keep her however her mother took her from grandmother when she found out her father was cheating. Pt has two biological children, one has and also one adopted child. 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 Social support daughter, Jewish/Spirituality previously was Seventh Day Hindu Cultural/Ethnic information Legal Involvement and History Current or historical involvement with the legal system? none Education Highest grade completed 11th grade Patient has learning disability (most likely, undiagnosed). She struggles to read labels, remember and retain information. She requires information to be repeated multiple times and needs to take notes. Preferred learning style Learn by doing and Visual Currently enrolled in educational program? No Interested in further educational program? 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 Financial Situation Describe current financial situation Occasional struggle Financial assistance? None Medical and Physical Health Summary Physical exam in the last year? Yes Pain Screening Current pain? Yes Pain in the last few months? Yes Medications Is the patient compliant with medications? Yes Does the patient have Chung Guardian in place? Not applicable Does the patient use complimentary health approaches? No Trauma/Abuse History History of trauma? Yes Assessment & Plan Assessment & Plan (1) Major depressive disorder, recurrent, moderate: Code(s): F33.1 - Major depressive disorder, recurrent, moderate (2) Binge-eating disorder, moderate: Code(s): F50.81 - Binge eating disorder Plan Pt has a long history of depression, trauma, and reported that more recently some binge eating behaviors. She is in need of therapy and will be seen again. We discussed need for EMDR and will do a test run. Telehealth Telehealth Location of provider rendering services: other Location of patient: other Patient Identification confirmed using: Name, : Yes Telehealth method: video Patient verbally consented to treatment: Yes Patient verbally consented to billing insurance company: Yes Patient informed of any privacy concerns related to visit: Yes Minutes spent on Phone/Video with Pt.: 45 Coding Level of Care Code Tele Psytx 45 mins ([id number]) Diagnoses Major depressive disorder, recurrent, moderate F33.1 Binge-eating disorder, moderate F50.81 Time Spent (min) 45
== END 2023-08-22 15:01 | disposition home or self-care (01) ==
LOC: HO.HBST 14:55
PROVIDERS: PCP Nurse Practitioner Family; Visit Provider Counselor Mental Health
DX: F33.1 Major depressive disorder, recurrent, moderate (principal); F50.81 Binge eating disorder
CPT/HCPCS: 90834

== ENCOUNTER → 2023-08-22 14:55 | Outpatient (BNVA) | payer OTHER, SELFPAY | PROVIDERS: PCP Nurse Practitioner Family; Visit Provider Counselor Mental Health ==

== ENCOUNTER 2023-09-07 11:08 | Outpatient (AMB) | payer OTHER, SELFPAY ==
--- NOTE | 2023-09-07 14:34 | MHC.WMTHER ---
Intake Intake Visit Reasons: (OV) BH F/U Allergies No Known Allergies Allergy (Verified 07/27/23 06:43) [facility] Medical History History of prediabetes Hx of gastroesophageal reflux (GERD) Surgical History (Updated 07/27/23 @ 06:42 by Cinda Castañeda) History of bilateral knee replacement Hx of section Hx of dental mormonism Hx laparoscopic cholecystectomy History of sleeve gastrectomy Family History Mother Chronic alcoholism Depression Father Hypertension Senile Sister Depression Obesity Hypertension Diabetes Brother Diabetes Daughter Obesity Daughter Obesity Social History Alcohol intake: current Alcohol intake frequency: holidays/special occasions only Patient Tobacco Use Status: Former Tobacco user Quit Date: 1979 Tobacco use type: Cigarette Years Smoked: 5 Behavioral Health Assessment Weight Management Therapy Therapy Notes Details Patient continues to struggle with working towards her goals. She has taken on another foster child which leaves her more busy, Kaylan spends no time on herself with exercise. She reported eating little during the day and then overeats at night. Kaylan reported that she is leaving this week for [place] to see her . Presenting Concerns Referral Source provider Reason for referral weight loss surgery evaluation Precipitating Event obesity Living Situation Current Living Situation Own At risk of losing current housing? Yes Satisfied with current living situation? No Comments Pt lives in her own home and lives alone. Food/Weight/Diet Expectations of change weight loss and maintenance History/Relationship with food Pt stated that she would skip breakfast, eat big dinner, 6 beers of Co[employer] Light on the weekends, fast food about twice a week, buffet [place], she reported that she struggles with drinking water. Pt reported some binge eating, she will sit down and snack throughout the night until 8pm. History/Relationship with weight Prior to LSG she was 255lbs and then got down to 180lbs. Pt stated that she was overweight since childhood. History/Relationship with dieting weight loss surgery in 2019 Social History Family history and relationship Pt was born in [place] and age 7 moved here ([place]) with her parents who came first. She was raised by her grandmother who wanted to keep her however her mother took her from grandmother when she found out her father was cheating. Pt has two biological children, one has and also one adopted child. 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 Social support daughter, Orthodoxy/Spirituality previously was Seventh Day Sabianism Cultural/Ethnic information Legal Involvement and History Current or historical involvement with the legal system? none Education Highest grade completed 11th grade Patient has learning disability (most likely, undiagnosed). She struggles to read labels, remember and retain information. She requires information to be repeated multiple times and needs to take notes. Preferred learning style Learn by doing and Visual Currently enrolled in educational program? No Interested in further educational program? 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 Financial Situation Describe current financial situation Occasional struggle Financial assistance? None Medical and Physical Health Summary Physical exam in the last year? Yes Pain Screening Current pain? Yes Pain in the last few months? Yes Medications Is the patient compliant with medications? Yes Does the patient have Chung Guardian in place? Not applicable Does the patient use complimentary health approaches? No Trauma/Abuse History History of trauma? Yes Assessment & Plan Assessment & Plan (1) Major depressive disorder, recurrent, moderate: Code(s): F33.1 - Major depressive disorder, recurrent, moderate (2) Binge-eating disorder, moderate: Code(s): F50.81 - Binge eating disorder Plan Pt has a long history of depression, trauma, and reported that more recently some binge eating behaviors. She is in need of therapy and will be seen again. We discussed need for EMDR and will do a test run. Coding Level of Care Code Psytx 30 mins ([id number]) Diagnoses Major depressive disorder, recurrent, moderate F33.1 Binge-eating disorder, moderate F50.81 Time Spent (min) 30
== END 2023-09-07 14:32 | disposition home or self-care (01) ==
PROVIDERS: PCP Nurse Practitioner Family; Visit Provider Counselor Mental Health
DX: F33.1 Major depressive disorder, recurrent, moderate (principal); F50.81 Binge eating disorder
CPT/HCPCS: 90832

== ENCOUNTER → 2023-09-07 11:08 | Outpatient (BNVA) | payer OTHER, SELFPAY | PROVIDERS: PCP Nurse Practitioner Family; Visit Provider Counselor Mental Health ==